=== PATIENT | female | born 1945 | race Two or more races ===

== ENCOUNTER 2018-05-28 07:42 | Emergency (ER) | payer OTHER, MEDICAID ==
[~2018-05-28] VITALS: Ht 160 cm; Wt 78.9 kg
[2018-05-28] MEDS ORDERED: SODIUM CHLORIDE 0.9% 1,000 ML IV ONE (08:17)
[2018-05-28 08:20] LABS: Basophils # (auto) 0.1 uL; Basophils % (auto) 0.6 % (0.0-2.0); Eosinophils # (auto) 0.1 uL; Eosinophils % (auto) 0.5 % (0.0-7.0); Hematocrit 39.8 % (36.0-46.0); Mean Corpuscular Hemoglobin 28.4 pg (28.0-32.0); Mean Corpuscular Hgb Conc. 32.7 g/dL (32.0-36.0); Mean Corpuscular Volume 86.9 fL (80.0-100.0); Monocytes # (auto) 0.8 uL; Monocytes % (auto) 4.6 % (0.0-12.0); Neutrophils # (auto) 13.7 uL; Neutrophils % (auto) 82.3 % (37.0-80.0); Nucleated Red Blood Cells % 0.1 %; Platelet Count (auto) 293 10^3/uL (140-450); Red Blood Cells 4.58 10^6/uL (4.0-5.20); Red Cell Distribution Width 14.6 % (11.8-14.3); White Blood Cell 16.7 10^3/uL (4.4-10.8)
[2018-05-28 08:26] LABS: Urine Bacteria FEW /hpf (None Seen); Urine Blood 1+ /uL (Negative); Urine Specific Gravity 1.016 (1.001-1.035); Urine WBC 12 /hpf (0 - 5)
[2018-05-28] MEDS ORDERED: METOCLOPRAMIDE HCL 5MG/ml INJ 2ml VIAL IV ONE (08:30)
[2018-05-28] MEDS ORDERED: KETOROLAC TROMETH 30 MG/ML 1ML VIAL IV ONE (08:30)
[2018-05-28 08:42] LABS: Alanine Aminotransferase 18 U/L (13-56); Albumin 3.7 g/dL (3.4-5.0); Alkaline Phosphatase 92 U/L (45-117); Amylase 33 U/L (25-115); Anion Gap 10 (5-15); Aspartate Aminotransferase 14 U/L (15-37); BUN/Creatinine Ratio 18.4; Bilirubin, Total 0.5 mg/dL (0.2-1.0); Blood Urea Nitrogen 19 mg/dL (7-18); Calcium 8.9 mg/dL (8.5-10.1); Carbon Dioxide 26 mmol/L (21-32); Chloride 100 mmol/L (98-107); GFR African American 68 mL/min; GFR Non-African American 56 mL/min; Glucose 202 mg/dL (74-106); Lipase 185 U/L (73-393); Magnesium 2.3 mg/dL (1.6-2.6); Sodium 136 mmol/L (136-145); Total Protein 8.8 g/dL (6.4-8.2)
[2018-05-28 10:42] VITALS: BP 148/63
== END 2018-05-28 13:03 | disposition home or self-care (01) ==
LOC: ER 07:42
DX: N39.0 Urinary tract infection, site not specified (principal); K42.9 Umbilical hernia without obstruction or gangrene; K80.20 Calculus of gallbladder without cholecystitis without obstruction; E11.65 Type 2 diabetes mellitus with hyperglycemia; E78.5 Hyperlipidemia, unspecified; I10 Essential (primary) hypertension; Z87.891 Personal history of nicotine dependence
CPT/HCPCS: 36415; 71046; 74176; 80053; 81001; 82150; 82962; 83690; 83735; 84443; 84484; 85025; 93005; 94761; 96374; 96375; 99285; J1885; J2765; J7030

== ENCOUNTER 2024-01-01 23:47 | Inpatient (IN) | payer MEDICARE, MEDICAID ==
[~2024-01-01] VITALS: Ht 157.5 cm; Wt 81.0 kg
[2024-01-02 02:01] LABS: Basophils # (auto) 0 10 ^3/uL (0-0.2); Basophils % (auto) 0.1 % (0.0-2.0); Eosinophils # (auto) 0 10 ^3/uL (0-0.8); Hemoglobin 14.5 g/dL (12.2-16.2); Lymphocytes % (auto) 6.8 % (10.0-50.0)
[2024-01-02 02:04] LABS: Hematocrit 46.5 % (36.0-46.0); Lymphocytes # (auto) 0.9 10 ^3/uL (0.4-5.4); Mean Corpuscular Hemoglobin 25.3 pg (28.0-32.0); Mean Corpuscular Hgb Conc. 31.2 g/dL (32.0-36.0); Mean Corpuscular Volume 81.1 fL (80.0-100.0); Monocytes # (auto) 0.5 10 ^3/uL (0-1.3); Monocytes % (auto) 3.7 % (0.0-12.0); Neutrophils # (auto) 12.4 10 ^3/uL (1.6-8.6); Neutrophils % (auto) 89.4 % (37.0-80.0); Nucleated Red Blood Cells % 0.2 %; Red Blood Cells 5.73 10^6/uL (4.0-5.20); Red Cell Distribution Width 16.8 % (11.8-14.3); White Blood Cell 13.8 10^3/uL (4.4-10.8)
[2024-01-02 02:17] LABS: Alanine Aminotransferase 10 U/L (7-40); Albumin 4.8 g/dL (3.2-4.8); Alkaline Phosphatase 112 U/L (46-116); Anion Gap 17 (5-15); Aspartate Aminotransferase < 8 U/L (13-40); BUN/Creatinine Ratio 10.4 (10.0-20.0); Bilirubin, Total 0.5 mg/dL (0.2-1.0); Blood Urea Nitrogen 59 mg/dL (9-23); Carbon Dioxide 14 mmol/L (20-30); Chloride 96 mmol/L (98-107); Glucose 349 mg/dL (74-106); Lipase 62 U/L (12-53); Sodium 127 mmol/L (136-145); Total Protein 9.2 g/dL (5.7-8.2)
[2024-01-02 02:19] LABS: Lactic Acid w/Reflex 2.6 mmol/L (0.4-2.0); Potassium 6.5 mmol/L (3.5-5.1)
[2024-01-02] MEDS: SODIUM CHLORIDE 0.9% 1,000 ML IV ONE (02:26)
[2024-01-02] MEDS: ONDANSETRON HCL 4 MG/2 ML VIAL IV ONE ×2 (02:26→04:09)
[2024-01-02 03:15] VITALS: PULSE 106; RESP 18; O2SAT 98
[2024-01-02] MEDS: DEXTROSE (25%) 10 ML SYRG IV ONE (03:23)
[2024-01-02] MEDS: ALBUTEROL SULF 2.5 MG/0.5ML(0.5%) NEB SOLN NEB ONE (03:26)
[2024-01-02] MEDS: SODIUM BICARB 8.4% 50Meq/50ml SYR Vial IV ONE (03:32)
[2024-01-02] MEDS: CALCIUM GLUC 1,000mg/50ml-NS 50 ML IV ONE (03:32)
[2024-01-02] MEDS: InsuLIN REG 1unit/0.01ml Soln (100units/ml) IV ONE (03:35)
[2024-01-02] MEDS: MORPHINE SULFATE 4 MG/ML SYR/VIAL IV ONE (04:10)
[2024-01-02] MEDS ORDERED: MORPHINE SULFATE INJ 2 MG/ml SYRG IV PRN (04:30)
[2024-01-02] MEDS ORDERED: DEXTROSE (50%) 50ML SYRG IV PRN (04:30)
[2024-01-02] MEDS ORDERED: NITROGLYCERIN 0.4 MG SL TAB SL PRN (04:30)
[2024-01-02] MEDS: SODIUM CHLORIDE 0.9% 1,000 ML IV SCH ×2 (05:15→09:13)
[2024-01-02] MEDS: cefTRIAXone 1GM/50ML D5W 50 ML IV ONE (05:15)
[2024-01-02 07:45] VITALS: PULSE 104; RESP 20; O2SAT 97
[2024-01-02 08:05] LABS: Chloride 96 mmol/L (98-107)
[2024-01-02 08:06] LABS: Anion Gap 22 (5-15); Calcium 8.3 mg/dL (8.5-10.1); Carbon Dioxide 18 mmol/L (20-30)
[2024-01-02 08:11] LABS: BUN/Creatinine Ratio 14.4 (10.0-20.0); Blood Urea Nitrogen 67 mg/dL (9-23); Glucose 311 mg/dL (74-106)
[2024-01-02 08:12] LABS: Potassium 3.3 mmol/L (3.5-5.1); Sodium 136 mmol/L (136-145)
[2024-01-02] MEDS ORDERED: SODIUM CHLORIDE 0.9% 1,000 ML IV SCH (08:15)
[2024-01-02] MEDS: ACCU-CHEK COMFORT CURVE STRIP VI SCH (08:38)
[2024-01-02] MEDS: InsuLIN REG 1unit/0.01ml Soln (100units/ml) SC SCH (08:40)
[2024-01-02] MEDS: FAMOTIDINE (10MG/ML) 2ML VL IV SCH (10:23)
[2024-01-02] MEDS: HEPARIN SODIUM (PORCINE) 5000 UNITS/ML 1ML VIAL SC SCH (10:25)
[2024-01-02 11:24] LABS: Chloride 96 mmol/L (98-107); Potassium 3.9 mmol/L (3.5-5.1); Sodium 134 mmol/L (136-145)
[2024-01-02 11:25] LABS: Anion Gap 15 (5-15); Carbon Dioxide 23 mmol/L (20-30)
[2024-01-02 11:30] LABS: BUN/Creatinine Ratio 15.1 (10.0-20.0); Blood Urea Nitrogen 67 mg/dL (9-23); Glucose 219 mg/dL (74-106)
[2024-01-02 12:06] LABS: Urine Bacteria FEW /hpf (None Seen); Urine Blood TRACE /uL (Negative); Urine Budding Yeast MANY /hpf (None Seen); Urine Clarity CLOUDY (Clear); Urine Color Yellow (Yellow); Urine Mucus MODERATE (None Seen); Urine Protein, UAD 1+ (Negative); Urine Specific Gravity 1.017 (1.001-1.035); Urine Urobilinogen Normal (Negative); Urine WBC 65 /hpf (0 - 5)
[2024-01-02 20:28] VITALS: PULSE 97; RESP 20; O2SAT 93
[2024-01-02 23:01] VITALS: BP 119/50; PULSE 84; PULSE 91; RESP 20; TEMP 98.2; O2SAT 94; O2SAT 98
[2024-01-02] MEDS ORDERED: ASPI-543 PO (23:22)
[2024-01-02] MEDS ORDERED: CLOB0.059 TOP (23:22)
[2024-01-02] MEDS ORDERED: OMEP1CAP70 PO (23:22)
[2024-01-02] MEDS ORDERED: ATEN100T PO (23:22)
[2024-01-02] MEDS ORDERED: SEMA2INJ3 SC (23:22)
[2024-01-02] MEDS ORDERED: CETI-120 PO (23:22)
[2024-01-02] MEDS ORDERED: CHOL1TAB30 PO (23:22)
[2024-01-03] VITALS (7 sets, daily range): BP systolic 100–117; BP diastolic 32–54; PULSE 77–117; RESP 16–20; TEMP 97.8–98; O2SAT 93–97
[2024-01-03] MEDS: DIGOXIN (250MCG/ML) 2 ML AMPULE IV ONE ×2 (01:38→05:07)
[2024-01-03 06:08] LABS: Eosinophils # (auto) 0 10 ^3/uL (0-0.8); Mean Corpuscular Volume 78.6 fL (80.0-100.0)
[2024-01-03 06:10] LABS: Basophils # (auto) 0 10 ^3/uL (0-0.2); Basophils % (auto) 0.3 % (0.0-2.0); Eosinophils % (auto) 0.5 % (0.0-7.0); Hematocrit 35.2 % (36.0-46.0); Hemoglobin 11.3 g/dL (12.2-16.2); Lymphocytes # (auto) 1.5 10 ^3/uL (0.4-5.4); Lymphocytes % (auto) 15.4 % (10.0-50.0); Mean Corpuscular Hemoglobin 25.1 pg (28.0-32.0); Monocytes # (auto) 1.1 10 ^3/uL (0-1.3); Monocytes % (auto) 11.8 % (0.0-12.0); Neutrophils # (auto) 6.8 10 ^3/uL (1.6-8.6); Nucleated Red Blood Cells % 0.2 %; Red Blood Cells 4.48 10^6/uL (4.0-5.20); Red Cell Distribution Width 16.4 % (11.8-14.3); White Blood Cell 9.5 10^3/uL (4.4-10.8)
[2024-01-03 06:28] LABS: Albumin 3.3 g/dL (3.2-4.8); Anion Gap 11 (5-15); Bilirubin, Total 0.5 mg/dL (0.2-1.0); Calcium 7.7 mg/dL (8.5-10.1); Carbon Dioxide 22 mmol/L (20-30); Chloride 104 mmol/L (98-107); Glucose 130 mg/dL (74-106); Potassium 3.9 mmol/L (3.5-5.1); Sodium 137 mmol/L (136-145)
[2024-01-03 06:43] LABS: Alanine Aminotransferase 10 U/L (7-40); Alkaline Phosphatase 74 U/L (46-116); Aspartate Aminotransferase 20 U/L (13-40); BUN/Creatinine Ratio 21.3 (10.0-20.0)
[2024-01-03 06:46] LABS: Blood Urea Nitrogen 56 mg/dL (9-23)
[2024-01-03 08:58] LABS: Hepatitis B Surface Antigen Negative (Negative)
[2024-01-03] MEDS: cefTRIAXone 1GM/50ML D5W 50 ML IV SCH (09:11)
[2024-01-03 09:20] LABS: Hepatitis C Antibody Negative (Negative)
[2024-01-03] MEDS: DOCUSATE SOD 100 MG CAP PO PRN (12:07)
[2024-01-03] MEDS: HYDROcodone-ACET 5/325MG TAB PO PRN (12:15)
[2024-01-03] MEDS ORDERED: PANTOPRAZOLE 40 MG TAB PO ONE (17:15)
[2024-01-03] MEDS: PANTOPRAZOLE 40 MG/10 ML VIAL INJ IV ONE (20:06)
[2024-01-03] MEDS: ONDANSETRON HCL 4 MG/2 ML VIAL IV PRN (20:30)
[2024-01-04] VITALS (7 sets, daily range): BP systolic 115–146; BP diastolic 39–68; PULSE 67–104; RESP 16–20; TEMP 97.3–98.7; O2SAT 93–96
[2024-01-04] MEDS: PANTOPRAZOLE 40 MG/10 ML VIAL INJ IV SCH (08:45)
[2024-01-04] MEDS ORDERED: INSU1INJ19 SC (09:44)
[2024-01-04] MEDS ORDERED: LISI40TA16 PO (09:44)
[2024-01-04] MEDS ORDERED: PANTOPRAZOLE 40 MG TAB PO SCH (10:00)
[2024-01-04 17:08] LABS: Sodium Urine < 10 mmol/L (40-220)
[2024-01-04 17:12] LABS: Protein, Urine 28.7 mg/dL (0.0-11.9)
[2024-01-04 17:15] LABS: Creatinine, Urine 81.94 mg/dL (30.0-125.0); Urine Protein/Creatinine Ratio 0.35
[2024-01-05] VITALS (8 sets, daily range): BP systolic 120–147; BP diastolic 53–98; PULSE 67–162; RESP 16–18; TEMP 98–98.6; O2SAT 94–98
[2024-01-05 06:09] LABS: Alanine Aminotransferase 12 U/L (7-40); Albumin 3.1 g/dL (3.2-4.8); Alkaline Phosphatase 62 U/L (46-116); Anion Gap 7 (5-15); Aspartate Aminotransferase 14 U/L (13-40); BUN/Creatinine Ratio 23.8 (10.0-20.0); Bilirubin, Total 0.4 mg/dL (0.2-1.0); Blood Urea Nitrogen 24 mg/dL (9-23); Calcium 7.8 mg/dL (8.7-10.4); Carbon Dioxide 21 mmol/L (20-30); Chloride 109 mmol/L (98-107); Glucose 97 mg/dL (74-106); Potassium 4.3 mmol/L (3.5-5.1); Sodium 137 mmol/L (136-145); Total Protein 5.7 g/dL (5.7-8.2)
[2024-01-05] MEDS ORDERED: CETI10CA PO (08:54)
[2024-01-05] MEDS: ENOXAPARIN SOD 80 MG/0.8ML SYRINGE SC SCH (08:57)
[2024-01-05] MEDS: METOPROLOL TARTRATE 25 MG TAB PO ONE (08:58)
[2024-01-05] MEDS: AMIODARONE BOLUS KIT 100 ML IV ONE (11:19)
[2024-01-05] MEDS: AMIODARONE 450mg/250ml AE 250 ML IV SCH ×2 (11:37→14:45)
[2024-01-05] MEDS: METOPROLOL TARTRATE 25 MG TAB PO SCH (21:32)
[2024-01-05] MEDS: ACETAMINOPHEN 325 MG TAB PO PRN (21:43)
[2024-01-06] VITALS (7 sets, daily range): BP systolic 128–150; BP diastolic 49–68; PULSE 60–128; RESP 16–20; TEMP 97.4–98.3; O2SAT 93–99
[2024-01-06 06:58] LABS: Alanine Aminotransferase 12 U/L (7-40); Alkaline Phosphatase 58 U/L (46-116); Anion Gap 8 (5-15); Aspartate Aminotransferase 15 U/L (13-40); BUN/Creatinine Ratio 15.9 (10.0-20.0); Blood Urea Nitrogen 17 mg/dL (9-23); Calcium 7.8 mg/dL (8.7-10.4); Carbon Dioxide 21 mmol/L (20-30); Chloride 109 mmol/L (98-107); Glucose 80 mg/dL (74-106); Potassium 4.5 mmol/L (3.5-5.1); Sodium 138 mmol/L (136-145)
[2024-01-06 06:59] LABS: Bilirubin, Total 0.4 mg/dL (0.2-1.0); Total Protein 5.6 g/dL (5.7-8.2)
[2024-01-06] MEDS: ONDANSETRON HCL 4 MG/2 ML VIAL IV ONE (09:20)
[2024-01-06 10:33] LABS: Basophils # (auto) 0 10 ^3/uL (0-0.2); Hemoglobin 10.7 g/dL (12.2-16.2); Lymphocytes # (auto) 1.8 10 ^3/uL (0.4-5.4); Monocytes # (auto) 0.6 10 ^3/uL (0-1.3); Neutrophils # (auto) 4.3 10 ^3/uL (1.6-8.6); Neutrophils % (auto) 62.6 % (37.0-80.0); White Blood Cell 6.9 10^3/uL (4.4-10.8)
[2024-01-06 10:35] LABS: Basophils % (auto) 0.5 % (0.0-2.0); Eosinophils # (auto) 0.1 10 ^3/uL (0-0.8); Eosinophils % (auto) 1.9 % (0.0-7.0); Hematocrit 34.5 % (36.0-46.0); Lymphocytes % (auto) 26.1 % (10.0-50.0); Mean Corpuscular Hgb Conc. 30.9 g/dL (32.0-36.0); Mean Corpuscular Volume 81.1 fL (80.0-100.0); Monocytes % (auto) 8.9 % (0.0-12.0); Nucleated Red Blood Cells % 0.1 %; Red Blood Cells 4.25 10^6/uL (4.0-5.20); Red Cell Distribution Width 16.9 % (11.8-14.3)
[2024-01-06] MEDS: metroNIDAZOLE 500MG/100ML 100 ML IV ONE (11:24)
[2024-01-06 12:37] LABS: INR 1.1 (0.9-1.15); Partial Thromboplastin Time 32.9 SEC (24.5-34.5); Prothrombin Time 11.5 sec (9.3-11.8)
[2024-01-06] MEDS: PROMETHAZINE HCL 25 MG/ML 1ML IV PRN (13:40)
[2024-01-06] MEDS: GASTROGRAFIN 120 ML SOL ONE ×2 (13:58→14:50)
[2024-01-07] VITALS (7 sets, daily range): BP systolic 99–140; BP diastolic 64–98; PULSE 66–126; RESP 16–18; TEMP 97.8–98.2; O2SAT 96–97
[2024-01-07] MEDS: GASTROGRAFIN 120 ML SOL ONE (11:12)
[2024-01-07] MEDS: PROMETHAZINE HCL 25 MG/ML 1ML IV PRN (15:39)
[2024-01-08] VITALS (8 sets, daily range): BP systolic 113–167; BP diastolic 68–71; PULSE 67–125; RESP 15–18; TEMP 97.6–98.3; O2SAT 96–97
[2024-01-09] VITALS (8 sets, daily range): BP systolic 140–159; BP diastolic 37–67; PULSE 74–91; RESP 16–20; TEMP 97.6–98.4; O2SAT 96–99
[2024-01-09] MEDS ORDERED: hydrALAZINE HCL 20 MG/ML VL IV PRN (01:15)
[2024-01-09] MEDS: hydrALAZINE HCL 20 MG/ML VL IV PRN (02:55)
[2024-01-09] MEDS: InsuLIN REG 1unit/0.01ml Soln (100units/ml) SC SCH (11:30)
[2024-01-09] MEDS: ACCU-CHEK COMFORT CURVE STRIP VI SCH (12:32)
[2024-01-10] VITALS (10 sets, daily range): BP systolic 119–144; BP diastolic 46–61; PULSE 73–79; RESP 11–20; TEMP 97.4–98.2; O2SAT 95–100
[2024-01-10 06:27] LABS: Eosinophils # (auto) 0.2 10 ^3/uL (0-0.8); Hemoglobin 10.7 g/dL (12.2-16.2); Lymphocytes # (auto) 1.9 10 ^3/uL (0.4-5.4); Monocytes # (auto) 0.8 10 ^3/uL (0-1.3); Red Cell Distribution Width 17.4 % (11.8-14.3)
[2024-01-10 06:30] LABS: Basophils # (auto) 0 10 ^3/uL (0-0.2); Basophils % (auto) 0.3 % (0.0-2.0); Eosinophils % (auto) 1.8 % (0.0-7.0); Hematocrit 33.9 % (36.0-46.0); Lymphocytes % (auto) 17.4 % (10.0-50.0); Mean Corpuscular Hemoglobin 25.7 pg (28.0-32.0); Mean Corpuscular Hgb Conc. 31.6 g/dL (32.0-36.0); Mean Corpuscular Volume 81.6 fL (80.0-100.0); Monocytes % (auto) 7.4 % (0.0-12.0); Neutrophils % (auto) 73.1 % (37.0-80.0); Red Blood Cells 4.15 10^6/uL (4.0-5.20)
[2024-01-10 06:41] LABS: Alanine Aminotransferase 38 U/L (7-40); Albumin 3.3 g/dL (3.2-4.8); Alkaline Phosphatase 66 U/L (46-116); Anion Gap 8 (5-15); Aspartate Aminotransferase 31 U/L (13-40); Blood Urea Nitrogen 12 mg/dL (9-23); Calcium 8.1 mg/dL (8.7-10.4); Carbon Dioxide 21 mmol/L (20-30); Chloride 107 mmol/L (98-107); Glucose 104 mg/dL (74-106); Potassium 4.3 mmol/L (3.5-5.1); Sodium 136 mmol/L (136-145)
[2024-01-10 06:42] LABS: Bilirubin, Total 0.4 mg/dL (0.2-1.0); Total Protein 5.9 g/dL (5.7-8.2)
[2024-01-10] MEDS ORDERED: MIDAZOLAM HCL 2MG/2ML 2ml VIAL (1mg/ml) ONE (10:48)
[2024-01-10] MEDS ORDERED: HYDROmorphone HCL 2 MG/ML VL/or syr ONE (10:48)
[2024-01-10] MEDS ORDERED: fentaNYL CITRATE 100 MCG/2 ML VL ONE (10:48)
[2024-01-10] MEDS ORDERED: ROCURONIUM 10MG/ML 10ML VIAL IV ONE (10:49)
[2024-01-10] MEDS ORDERED: PROPOFOL 10 MG/ML 20 ML IV ONE (10:49)
[2024-01-10] MEDS ORDERED: ONDANSETRON HCL 4 MG/2 ML VIAL ONE (10:49)
[2024-01-10] MEDS ORDERED: DexAMETHasone SOD PHOS 10MG/1ML VIAL INJ ONE (10:49)
[2024-01-10] MEDS ORDERED: GLYCOPYRROLATE 0.2 MG/ML 1ML VIAL ONE (10:49)
[2024-01-10] MEDS ORDERED: KETAMINE 50mg/ML 1ml syringe ONE (10:49)
[2024-01-10] MEDS ORDERED: LIDOCAINE 2% (LOCAL ANESTH.) PF 5ml SDV ONE (10:49)
[2024-01-10] MEDS ORDERED: ePHEDrine SULFATE 50 MG/ML AMP ONE (10:49)
[2024-01-10] MEDS ORDERED: SUGAMMADEX 200mg/2ml Vial (100MG/ML) IV ONE (13:03)
[2024-01-10] MEDS ORDERED: NALOXONE HCL 0.4 MG/ML VIAL ONE (13:20)
[2024-01-10] MEDS ORDERED: HYDROmorphone HCL 2 MG/ML VL/or syr IV PRN (13:45)
[2024-01-10] MEDS ORDERED: ONDANSETRON HCL 4 MG/2 ML VIAL IV PRN (13:45)
[2024-01-10] MEDS: MORPHINE SULFATE INJ 2 MG/ml SYRG IV PRN (23:39)
[2024-01-10] MEDS: ONDANSETRON HCL 4 MG/2 ML VIAL IV PRN (23:41)
[2024-01-11] VITALS (46 sets, daily range): BP systolic 93–131; BP diastolic 26–58; PULSE 73–85; RESP 10–19; TEMP 97.9–98.2; O2SAT 92–100
[2024-01-11 05:20] LABS: Hemoglobin 9.8 g/dL (12.2-16.2)
[2024-01-11 05:22] LABS: Hematocrit 31.6 % (36.0-46.0); Mean Corpuscular Hemoglobin 25.5 pg (28.0-32.0); Mean Corpuscular Hgb Conc. 31.2 g/dL (32.0-36.0); Mean Corpuscular Volume 81.9 fL (80.0-100.0); Red Blood Cells 3.86 10^6/uL (4.0-5.20); Red Cell Distribution Width 17.5 % (11.8-14.3); White Blood Cell 25.1 10^3/uL (4.4-10.8)
[2024-01-11 05:34] LABS: Basophils % (manual) 0 (0.0-2.0); Blast Cells 0; Eosinophils % (manual) 0 (0-7); Metamyelocytes % 0; Monocytes % (manual) 0 (0-12); Myelocytes % 0; Promyelocytes % 0; Reactive Lymphocytes 0
[2024-01-11 05:40] LABS: Alanine Aminotransferase 33 U/L (7-40); Albumin 2.8 g/dL (3.2-4.8); Alkaline Phosphatase 52 U/L (46-116); Anion Gap 9 (5-15); Aspartate Aminotransferase 24 U/L (13-40); Blood Urea Nitrogen 15 mg/dL (9-23); Calcium 7.6 mg/dL (8.5-10.1); Carbon Dioxide 20 mmol/L (20-30); Chloride 108 mmol/L (98-107); Glucose 176 mg/dL (74-106); Potassium 5.1 mmol/L (3.5-5.1); Sodium 137 mmol/L (136-145)
[2024-01-11 05:41] LABS: Bilirubin, Total 0.4 mg/dL (0.2-1.0); Total Protein 4.7 g/dL (5.7-8.2)
[2024-01-11] MEDS ORDERED: fentaNYL CITRATE 100 MCG/2 ML VL ONE (07:04)
[2024-01-11 07:05] LABS: Band Neutrophils % (manual) 8; Lymphocytes % (manual) 1 (10.0-50.0)
[2024-01-11] MEDS ORDERED: MIDAZOLAM HCL 2MG/2ML 2ml VIAL (1mg/ml) ONE (07:05)
[2024-01-11] MEDS ORDERED: LIDOCAINE 1% INJ PF 5ML AMP ONE (07:05)
[2024-01-11] MEDS ORDERED: ONDANSETRON HCL 4 MG/2 ML VIAL ONE (07:05)
[2024-01-11] MEDS ORDERED: SODIUM CHLORIDE LOCK 20 ML ONE (07:05)
[2024-01-11] MEDS ORDERED: MEPERIDINE HCL (50 MG/ML) 1 ML VIAL ONE (07:05)
[2024-01-11] MEDS ORDERED: LIDOCAINE HCL 2% TOP JELLY 5ML TOP ONE (07:05)
[2024-01-11] MEDS ORDERED: DexAMETHasone SOD PHOS 10MG/1ML VIAL INJ ONE (07:05)
[2024-01-11] MEDS ORDERED: PROPOFOL 10 MG/ML 20 ML IV ONE (07:05)
[2024-01-11 07:08] LABS: Anisocytosis Slight; Ovalocytes FEW; Platelet Estimate Adequate
[2024-01-11] MEDS ORDERED: KETAMINE 50mg/ML 1ml syringe ONE (07:13)
[2024-01-11] MEDS ORDERED: MORPHINE SULFATE INJ 2 MG/ml SYRG IV PRN (07:30)
[2024-01-11] MEDS ORDERED: HYDROmorphone HCL 2 MG/ML VL/or syr IV PRN ×2 (07:30)
[2024-01-11] MEDS: SUCCINYLCHOLINE CHLORIDE 20 MG/ML 10ML VIAL IV ONE (11:09)
[2024-01-11] MEDS: ROCURONIUM 10MG/ML 10ML VIAL IV ONE (11:09)
[2024-01-11] MEDS: ceFAZolin 1GM/50ML 50 ML IV ONE (11:10)
[2024-01-11] MEDS: PIPERACILLIN-TAZOB 3.375GM 100 ML IV SCH (11:36)
[2024-01-11] MEDS ORDERED: KETOROLAC TROMETH 30 MG/ML 1ML VIAL IV PRN (15:30)
[2024-01-11] MEDS: AMIODARONE 450mg/250ml AE 250 ML IV SCH (16:00)
[2024-01-11] MEDS: ACETAMINOPHEN IV 1000 MG/100ML (10MG/ML) IV PRN (18:08)
[2024-01-12] VITALS (12 sets, daily range): BP systolic 91–154; BP diastolic 35–60; PULSE 81–101; RESP 14–28; TEMP 97.9–100.2; O2SAT 91–96
[2024-01-12 06:34] LABS: Basophils # (auto) 0 10 ^3/uL (0-0.2); Hemoglobin 9.4 g/dL (12.2-16.2)
[2024-01-12 06:38] LABS: Basophils % (auto) 0.1 % (0.0-2.0); Eosinophils # (auto) 0.1 10 ^3/uL (0-0.8); Eosinophils % (auto) 0.8 % (0.0-7.0); Hematocrit 30.3 % (36.0-46.0); Lymphocytes # (auto) 0.6 10 ^3/uL (0.4-5.4); Lymphocytes % (auto) 3.4 % (10.0-50.0); Mean Corpuscular Hemoglobin 25.4 pg (28.0-32.0); Monocytes # (auto) 0.8 10 ^3/uL (0-1.3); Monocytes % (auto) 4.6 % (0.0-12.0); Neutrophils # (auto) 16.8 10 ^3/uL (1.6-8.6); Neutrophils % (auto) 91.1 % (37.0-80.0); Red Blood Cells 3.69 10^6/uL (4.0-5.20); Red Cell Distribution Width 17.9 % (11.8-14.3); White Blood Cell 18.4 10^3/uL (4.4-10.8)
[2024-01-12 06:50] LABS: Alanine Aminotransferase 18 U/L (7-40); Albumin 2.6 g/dL (3.2-4.8); Alkaline Phosphatase 54 U/L (46-116); Anion Gap 7 (5-15); Aspartate Aminotransferase 11 U/L (13-40); Bilirubin, Total 0.4 mg/dL (0.2-1.0); Blood Urea Nitrogen 15 mg/dL (9-23); Calcium 7.2 mg/dL (8.7-10.4); Carbon Dioxide 21 mmol/L (20-30); Chloride 110 mmol/L (98-107); Glucose 124 mg/dL (74-106); Potassium 4.1 mmol/L (3.5-5.1); Sodium 138 mmol/L (136-145)
[2024-01-12 06:51] LABS: Total Protein 4.7 g/dL (5.7-8.2)
[2024-01-12 14:29] LABS: INR 1.09 (0.9-1.15); Partial Thromboplastin Time 31.8 SEC (24.5-34.5); Prothrombin Time 11.4 sec (9.3-11.8)
[2024-01-12] MEDS: LIDOCAINE 1% (LOCAL ANESTH.) PF 5ml SDV ID ONE (18:30)
[2024-01-12] MEDS: SODIUM CHLOR 0.9% PF (SALINE LOCK) 10ML VIAL/SYR IV SCH (22:00)
[2024-01-13] VITALS (9 sets, daily range): BP systolic 127–168; BP diastolic 35–67; PULSE 78–129; RESP 17–25; TEMP 96.1–98.9; O2SAT 91–100
[2024-01-13 05:14] LABS: Basophils # (auto) 0 10 ^3/uL (0-0.2); Basophils % (auto) 0.2 % (0.0-2.0); Eosinophils # (auto) 0.1 10 ^3/uL (0-0.8); Eosinophils % (auto) 0.9 % (0.0-7.0); Hematocrit 27.3 % (36.0-46.0); Hemoglobin 8.6 g/dL (12.2-16.2); Lymphocytes # (auto) 0.9 10 ^3/uL (0.4-5.4); Mean Corpuscular Hemoglobin 25.8 pg (28.0-32.0); Mean Corpuscular Hgb Conc. 31.4 g/dL (32.0-36.0); Mean Corpuscular Volume 82.2 fL (80.0-100.0); Monocytes % (auto) 6.7 % (0.0-12.0); Neutrophils # (auto) 13.1 10 ^3/uL (1.6-8.6); Neutrophils % (auto) 86.2 % (37.0-80.0); Red Blood Cells 3.32 10^6/uL (4.0-5.20); Red Cell Distribution Width 18.2 % (11.8-14.3); White Blood Cell 15.1 10^3/uL (4.4-10.8)
[2024-01-13 05:20] LABS: Alanine Aminotransferase 15 U/L (7-40); Albumin 2.4 g/dL (3.2-4.8); Alkaline Phosphatase 55 U/L (46-116); Anion Gap 7 (5-15); Aspartate Aminotransferase 14 U/L (13-40); BUN/Creatinine Ratio 10.8 (10.0-20.0); Bilirubin, Total 0.4 mg/dL (0.2-1.0); Blood Urea Nitrogen 9 mg/dL (9-23); Calcium 7.3 mg/dL (8.5-10.1); Carbon Dioxide 21 mmol/L (20-30); Chloride 113 mmol/L (98-107); Glucose 123 mg/dL (74-106); Potassium 3.8 mmol/L (3.5-5.1); Sodium 141 mmol/L (136-145); Total Protein 4.3 g/dL (5.7-8.2)
[2024-01-13] MEDS: FUROSEMIDE 20 MG/2 ML VIAL IV ONE (13:18)
[2024-01-13] MEDS ORDERED: TPN PER PHARMACY 0 ML IV SCH (17:15)
[2024-01-13 18:32] LABS: Magnesium 1.5 mg/dL (1.6-2.6)
[2024-01-13 18:34] LABS: Phosphorus 1.9 mg/dL (2.4-5.1)
[2024-01-13] MEDS: AMINO ACID INFUSION IN D10W 1,000 ML IV SCH (20:17)
[2024-01-13] MEDS: POTASSIUM PHOSPHATE 22 MEQ in SODIUM CHL 0.9% 100 ML IV ONE (22:14)
[2024-01-13] MEDS: MAGNESIUM SULFATE 1GM/100ML 100 ML IV SCH (22:14)
[2024-01-14] VITALS (14 sets, daily range): BP systolic 129–186; BP diastolic 36–61; PULSE 71–128; RESP 13–22; TEMP 96.9–98.5; O2SAT 97–100
[2024-01-14 05:38] LABS: Basophils # (auto) 0.1 10 ^3/uL (0-0.2); Eosinophils # (auto) 0.1 10 ^3/uL (0-0.8); Lymphocytes # (auto) 0.6 10 ^3/uL (0.4-5.4); Monocytes # (auto) 0.9 10 ^3/uL (0-1.3)
[2024-01-14 05:42] LABS: Basophils % (auto) 0.5 % (0.0-2.0); Eosinophils % (auto) 1.1 % (0.0-7.0); Hemoglobin 8.6 g/dL (12.2-16.2); Mean Corpuscular Hemoglobin 26.3 pg (28.0-32.0); Mean Corpuscular Volume 82.2 fL (80.0-100.0); Monocytes % (auto) 6.9 % (0.0-12.0); Neutrophils # (auto) 11.1 10 ^3/uL (1.6-8.6); Neutrophils % (auto) 86.5 % (37.0-80.0); Nucleated Red Blood Cells % 0.1 %; Red Blood Cells 3.28 10^6/uL (4.0-5.20); Red Cell Distribution Width 18.1 % (11.8-14.3); White Blood Cell 12.8 10^3/uL (4.4-10.8)
[2024-01-14 06:02] LABS: Alanine Aminotransferase 9 U/L (7-40); Albumin 2.4 g/dL (3.2-4.8); Alkaline Phosphatase 58 U/L (46-116); Anion Gap 8 (5-15); BUN/Creatinine Ratio 11.7 (10.0-20.0); Blood Urea Nitrogen 9 mg/dL (9-23); Calcium 7.1 mg/dL (8.7-10.4); Carbon Dioxide 22 mmol/L (20-30); Chloride 109 mmol/L (98-107); Glucose 245 mg/dL (74-106); Magnesium 1.8 mg/dL (1.6-2.6); Potassium 3.4 mmol/L (3.5-5.1); Sodium 139 mmol/L (136-145)
[2024-01-14 06:03] LABS: Aspartate Aminotransferase < 8 U/L (13-40); Bilirubin, Total 0.4 mg/dL (0.2-1.0); Total Protein 4.6 g/dL (5.7-8.2)
[2024-01-14 06:35] LABS: Triglycerides 124 mg/dL (< 150)
[2024-01-14] MEDS: CALCIUM GLUC 1,000mg/50ml-NS 50 ML IV ONE (10:18)
[2024-01-14] MEDS: FLUCONAZOLE 200MG/100ML 100 ML IV SCH (10:18)
[2024-01-14] MEDS: FUROSEMIDE 20 MG/2 ML VIAL IV SCH (10:19)
[2024-01-14] MEDS: ACCU-CHEK COMFORT CURVE STRIP VI SCH (11:48)
[2024-01-14] MEDS ORDERED: DEXTROSE (50%) 50ML SYRG IV SCH (12:00)
[2024-01-14] MEDS: InsuLIN REG 1unit/0.01ml Soln (100units/ml) SC SCH (12:01)
[2024-01-14] MEDS: POTASSIUM PHOSPHATE 44 MEQ in D5W 5% 250 ML IV ONE (12:30)
[2024-01-14] MEDS: TPN PER PHARMACY IV NR (20:46)
[2024-01-15] VITALS (17 sets, daily range): BP systolic 147–187; BP diastolic 38–65; PULSE 68–82; RESP 12–23; TEMP 97.4–98.7; O2SAT 95–100
[2024-01-15 06:10] LABS: Basophils % (auto) 0.5 % (0.0-2.0); Hemoglobin 8.4 g/dL (12.2-16.2); Lymphocytes # (auto) 0.7 10 ^3/uL (0.4-5.4); Neutrophils # (auto) 8.8 10 ^3/uL (1.6-8.6); White Blood Cell 10.7 10^3/uL (4.4-10.8)
[2024-01-15 06:13] LABS: Basophils # (auto) 0 10 ^3/uL (0-0.2); Eosinophils # (auto) 0.2 10 ^3/uL (0-0.8); Eosinophils % (auto) 1.9 % (0.0-7.0); Hematocrit 25.9 % (36.0-46.0); Lymphocytes % (auto) 6.7 % (10.0-50.0); Mean Corpuscular Hemoglobin 26.3 pg (28.0-32.0); Mean Corpuscular Hgb Conc. 32.3 g/dL (32.0-36.0); Mean Corpuscular Volume 81.2 fL (80.0-100.0); Monocytes # (auto) 0.8 10 ^3/uL (0-1.3); Neutrophils % (auto) 82.9 % (37.0-80.0); Nucleated Red Blood Cells % 0.1 %; Red Blood Cells 3.19 10^6/uL (4.0-5.20); Red Cell Distribution Width 17.7 % (11.8-14.3)
[2024-01-15 06:19] LABS: Albumin 2.3 g/dL (3.2-4.8); Alkaline Phosphatase 55 U/L (46-116); Anion Gap 7 (5-15); Aspartate Aminotransferase < 8 U/L (13-40); BUN/Creatinine Ratio 13.6 (10.0-20.0); Blood Urea Nitrogen 9 mg/dL (9-23); Calcium 7.2 mg/dL (8.7-10.4); Carbon Dioxide 24 mmol/L (20-30); Chloride 106 mmol/L (98-107); Glucose 229 mg/dL (74-106); Magnesium 1.6 mg/dL (1.6-2.6); Phosphorus 2.5 mg/dL (2.4-5.1); Potassium 3.6 mmol/L (3.5-5.1); Sodium 137 mmol/L (136-145); Total Protein 4.5 g/dL (5.7-8.2)
[2024-01-15 06:20] LABS: Alanine Aminotransferase < 9 U/L (7-40)
[2024-01-15 06:21] LABS: Bilirubin, Total 0.4 mg/dL (0.2-1.0)
[2024-01-15] MEDS: METOPROLOL TARTRATE 25 MG TAB PO SCH (10:45)
[2024-01-15] MEDS ORDERED: SODIUM CHLORIDE 0.9% 1,000 ML IV SCH ×2 (11:15)
[2024-01-15] MEDS: MAGNESIUM SULFATE 1GM/100ML 100 ML IV SCH (11:15)
[2024-01-15] MEDS: ALBUMIN 25% 50 ML IV ONE (11:30)
[2024-01-15] MEDS: hydrALAZINE HCL 20 MG/ML VL IV SCH (12:15)
[2024-01-15] MEDS: POTASSIUM PHOSPHATE 22 MEQ in SODIUM CHL 0.9% 100 ML IV ONE (13:00)
[2024-01-15] MEDS: SODIUM CHLORIDE 0.9% 1,000 ML IV SCH (20:00)
[2024-01-15] MEDS: TPN PER PHARMACY IV NR (21:35)
[2024-01-16] VITALS (32 sets, daily range): BP systolic 122–185; BP diastolic 34–69; PULSE 68–84; RESP 11–20; TEMP 98–98.4; O2SAT 92–100
[2024-01-16 08:54] LABS: Alanine Aminotransferase 21 U/L (7-40); Albumin 2.6 g/dL (3.2-4.8); Alkaline Phosphatase 82 U/L (46-116); Anion Gap 7 (5-15); Aspartate Aminotransferase 36 U/L (13-40); BUN/Creatinine Ratio 17.7 (10.0-20.0); Bilirubin, Total 0.6 mg/dL (0.2-1.0); Blood Urea Nitrogen 11 mg/dL (9-23); Calcium 7.3 mg/dL (8.7-10.4); Carbon Dioxide 29 mmol/L (20-30); Chloride 103 mmol/L (98-107); Glucose 158 mg/dL (74-106); Phosphorus 2.5 mg/dL (2.4-5.1); Potassium 3.5 mmol/L (3.5-5.1); Sodium 139 mmol/L (136-145)
[2024-01-16] MEDS: CALCIUM GLUC 1,000mg/50ml-NS 50 ML IV ONE (11:20)
[2024-01-16] MEDS: POTASSIUM PHOSPHATE 22 MEQ in SODIUM CHL 0.9% 100 ML IV ONE (12:16)
[2024-01-16] MEDS: TPN PER PHARMACY IV NR (19:37)
[2024-01-17] VITALS (27 sets, daily range): BP systolic 115–174; BP diastolic 42–62; PULSE 69–82; RESP 13–20; TEMP 98.1–98.6; O2SAT 90–100
[2024-01-17 06:18] LABS: Alanine Aminotransferase 41 U/L (7-40); Albumin 2.5 g/dL (3.2-4.8); Alkaline Phosphatase 93 U/L (46-116); Anion Gap 6 (5-15); Aspartate Aminotransferase 54 U/L (13-40); BUN/Creatinine Ratio 22.9 (10.0-20.0); Blood Urea Nitrogen 16 mg/dL (9-23); Calcium 7.5 mg/dL (8.7-10.4); Carbon Dioxide 30 mmol/L (20-30); Chloride 102 mmol/L (98-107); Glucose 158 mg/dL (74-106); Potassium 3.7 mmol/L (3.5-5.1); Sodium 138 mmol/L (136-145)
[2024-01-17 06:19] LABS: Bilirubin, Total 0.5 mg/dL (0.2-1.0); Phosphorus 3.3 mg/dL (2.4-5.1)
[2024-01-17] MEDS: TPN PER PHARMACY IV NR (19:54)
[2024-01-18] VITALS (24 sets, daily range): BP systolic 134–185; BP diastolic 45–87; PULSE 69–82; RESP 11–22; TEMP 98–98.4; O2SAT 93–99
[2024-01-18 05:27] LABS: Alanine Aminotransferase 38 U/L (7-40); Albumin 2.5 g/dL (3.2-4.8); Alkaline Phosphatase 111 U/L (46-116); Anion Gap 4 (5-15); Aspartate Aminotransferase 40 U/L (13-40); BUN/Creatinine Ratio 26.8 (10.0-20.0); Bilirubin, Total 0.4 mg/dL (0.2-1.0); Blood Urea Nitrogen 19 mg/dL (9-23); Calcium 7.3 mg/dL (8.7-10.4); Carbon Dioxide 31 mmol/L (20-30); Chloride 103 mmol/L (98-107); Glucose 175 mg/dL (74-106); Magnesium 2.1 mg/dL (1.6-2.6); Phosphorus 2.9 mg/dL (2.4-5.1); Sodium 138 mmol/L (136-145)
[2024-01-18] MEDS ORDERED: GASTROGRAFIN 120 ML SOL ONE (09:43)
[2024-01-18] MEDS: AMPICILLIN & SULBACTAM 3 GM in NS 0.9% 100 ML IV SCH (13:08)
[2024-01-18] MEDS: TPN PER PHARMACY IV NR (21:48)
[2024-01-19] VITALS (11 sets, daily range): BP systolic 138–175; BP diastolic 39–62; PULSE 55–77; RESP 8–18; TEMP 98.2–98.4; O2SAT 93–100
[2024-01-19 06:13] LABS: Alanine Aminotransferase 44 U/L (7-40); Alkaline Phosphatase 120 U/L (46-116); Anion Gap 4 (5-15); Aspartate Aminotransferase 42 U/L (13-40); BUN/Creatinine Ratio 28.4 (10.0-20.0); Blood Urea Nitrogen 19 mg/dL (9-23); Calcium 7.5 mg/dL (8.7-10.4); Carbon Dioxide 32 mmol/L (20-30); Chloride 103 mmol/L (98-107); Glucose 119 mg/dL (74-106); Magnesium 2.3 mg/dL (1.6-2.6); Potassium 4.1 mmol/L (3.5-5.1); Sodium 139 mmol/L (136-145)
[2024-01-19 06:14] LABS: Albumin 2.7 g/dL (3.2-4.8); Bilirubin, Total 0.3 mg/dL (0.2-1.0); Phosphorus 2.8 mg/dL (2.4-5.1); Total Protein 5.3 g/dL (5.7-8.2)
[2024-01-19 06:40] LABS: Triglycerides 99 mg/dL (< 150)
[2024-01-19] MEDS: ACETAMINOPHEN 325 MG TAB PO PRN (11:52)
[2024-01-19] MEDS: TPN PER PHARMACY IV NR (20:30)
[2024-01-19] MEDS: AMIODARONE HCL 200 MG TAB PO SCH (21:33)
[2024-01-20] VITALS (10 sets, daily range): BP systolic 115–186; BP diastolic 35–94; PULSE 63–77; RESP 16–20; TEMP 97.8–98.9; O2SAT 94–98
[2024-01-20 06:18] LABS: Alanine Aminotransferase 33 U/L (7-40); Albumin 2.5 g/dL (3.2-4.8); Alkaline Phosphatase 106 U/L (46-116); Anion Gap 5 (5-15); Aspartate Aminotransferase 23 U/L (13-40); Blood Urea Nitrogen 22 mg/dL (9-23); Calcium 7.4 mg/dL (8.7-10.4); Carbon Dioxide 29 mmol/L (20-30); Chloride 105 mmol/L (98-107); Glucose 105 mg/dL (74-106); Magnesium 2.4 mg/dL (1.6-2.6); Potassium 4.5 mmol/L (3.5-5.1); Sodium 139 mmol/L (136-145)
[2024-01-20 06:19] LABS: Bilirubin, Total 0.2 mg/dL (0.2-1.0); Phosphorus 3.5 mg/dL (2.4-5.1)
[2024-01-20] MEDS ORDERED: ACETAMINOPHEN IV 1000 MG/100ML (10MG/ML) IV PRN (15:45)
[2024-01-20] MEDS: KETOROLAC TROMETH 30 MG/ML 1ML VIAL IV PRN (15:53)
[2024-01-20] MEDS: TPN PER PHARMACY IV NR (21:57)
[2024-01-21] VITALS (7 sets, daily range): BP systolic 140–170; BP diastolic 45–63; PULSE 64–77; RESP 15–20; TEMP 97.6–98.4; O2SAT 95–98
[2024-01-21 07:23] LABS: Potassium 4.8 mmol/L (3.5-5.1)
[2024-01-21 07:24] LABS: Calcium 7.7 mg/dL (8.5-10.1)
[2024-01-21 07:29] LABS: BUN/Creatinine Ratio 22.8 (10.0-20.0)
[2024-01-21 07:31] LABS: Albumin 2.7 g/dL (3.2-4.8); Phosphorus 4.1 mg/dL (2.4-5.1)
[2024-01-21 07:47] LABS: Magnesium 2.3 mg/dL (1.6-2.6)
[2024-01-21] MEDS: TPN PER PHARMACY IV NR (21:27)
[2024-01-22 05:12] VITALS: BP 137/44; PULSE 62; RESP 17; TEMP 98.1; O2SAT 97
[2024-01-22 08:00] VITALS: PULSE 68; RESP 18; O2SAT 98
[2024-01-22 09:00] VITALS: BP 148/73; PULSE 69; RESP 14; TEMP 98.3; O2SAT 96
[2024-01-22 09:04] LABS: Potassium 4.7 mmol/L (3.5-5.1)
[2024-01-22 09:05] LABS: Calcium 7.6 mg/dL (8.5-10.1)
[2024-01-22 09:10] LABS: BUN/Creatinine Ratio 26.4 (10.0-20.0)
[2024-01-22 09:11] LABS: Albumin 2.8 g/dL (3.2-4.8)
[2024-01-22 09:12] LABS: Phosphorus 3.2 mg/dL (2.4-5.1)
[2024-01-22 09:34] LABS: Magnesium 2.2 mg/dL (1.6-2.6)
[2024-01-22 11:34] LABS: Eosinophils # (auto) 0.3 10 ^3/uL (0-0.8); Lymphocytes # (auto) 0.9 10 ^3/uL (0.4-5.4); Mean Corpuscular Hemoglobin 25.8 pg (28.0-32.0); Mean Corpuscular Hgb Conc. 29.8 g/dL (32.0-36.0); Monocytes # (auto) 0.5 10 ^3/uL (0-1.3); Neutrophils # (auto) 9.3 10 ^3/uL (1.6-8.6)
[2024-01-22 11:35] LABS: Basophils # (auto) 0.1 10 ^3/uL (0-0.2); Basophils % (auto) 0.7 % (0.0-2.0); Eosinophils % (auto) 2.8 % (0.0-7.0); Hematocrit 24.4 % (36.0-46.0); Hemoglobin 7.3 g/dL (12.2-16.2); Lymphocytes % (auto) 7.9 % (10.0-50.0); Mean Corpuscular Volume 86.6 fL (80.0-100.0); Monocytes % (auto) 4.9 % (0.0-12.0); Neutrophils % (auto) 83.7 % (37.0-80.0); Nucleated Red Blood Cells % 0.1 %; Red Blood Cells 2.82 10^6/uL (4.0-5.20); Red Cell Distribution Width 19.5 % (11.8-14.3); White Blood Cell 11.1 10^3/uL (4.4-10.8)
[2024-01-22 13:00] VITALS: PULSE 59; RESP 18; TEMP 98.4; O2SAT 98
[2024-01-22 17:00] VITALS: BP 153/50; PULSE 62; RESP 20; TEMP 97.3; O2SAT 100
[2024-01-22 20:00] VITALS: PULSE 68; RESP 18; O2SAT 98
[2024-01-22] MEDS ORDERED: TPN PER PHARMACY IV NR (20:00)
[2024-01-23 04:59] VITALS: BP 133/48; PULSE 66; RESP 17; TEMP 98.1; O2SAT 97
[2024-01-23 08:10] VITALS: PULSE 67; RESP 18; O2SAT 97
[2024-01-23 09:36] VITALS: BP 164/96; PULSE 67; RESP 18; TEMP 98.4; O2SAT 97
[2024-01-23] MEDS ORDERED: DOCU-94 PO (10:20)
[2024-01-23] MEDS ORDERED: TRAM50TA2 PO (10:20)
[2024-01-23] MEDS ORDERED: FERR-7 PO (10:20)
[2024-01-23] MEDS ORDERED: AMIO200T33 PO (10:20)
[2024-01-23] MEDS ORDERED: METO-158 PO (10:20)
[2024-01-23] MEDS ORDERED: PANT40T PO (10:20)
[2024-01-23] MEDS: LINEZOLID 600MG/300ML 300 ML IV SCH (11:19)
[2024-01-23 13:21] VITALS: BP 153/71; PULSE 63; RESP 18; TEMP 98.6; O2SAT 97
[2024-01-23 13:28] VITALS: BP 153/71; PULSE 63; RESP 18; TEMP 98.6; O2SAT 97
== END 2024-01-23 14:45 | disposition home health service (06) | DRG 853 ==
LOC: ER 23:47 → TELE 01-02 04:32 → TELE-EAST 01-02 23:02 → DOU IN ICU 01-10 21:18 → TELE-WESTW 01-20 09:38 → WEST WING 01-23 07:20
PROVIDERS: ADMIT Nurse Practitioner Family; ATTEND Family Medicine
PROC: 0FT40ZZ Resection of Gallbladder, Open Approach (ICD-10-PCS; 2024-01-10)
PROC: 0DQ90ZZ Repair Duodenum, Open Approach (ICD-10-PCS; 2024-01-10)
PROC: 0DP0XUZ Removal of Feeding Device from Upper Intestinal Tract, External Approach (ICD-10-PCS; principal; 2024-01-10 11:29)
PROC: 0D9670Z Drainage of Stomach with Drainage Device, Via Natural or Artificial Opening (ICD-10-PCS; 2024-01-11)
PROC: 02HV33Z Insertion of Infusion Device into Superior Vena Cava, Percutaneous Approach (ICD-10-PCS; 2024-01-12)
PROC: B548ZZA Ultrasonography of Superior Vena Cava, Guidance (ICD-10-PCS; 2024-01-12)
DX: A41.9 Sepsis, unspecified organism (principal); K85.90 Acute pancreatitis without necrosis or infection, unspecified; N17.9 Acute kidney failure, unspecified; K56.3 Gallstone ileus; N39.0 Urinary tract infection, site not specified; E87.1 Hypo-osmolality and hyponatremia; K31.6 Fistula of stomach and duodenum; K82.3 Fistula of gallbladder; K83.3 Fistula of bile duct; S36.400A Unspecified injury of duodenum, initial encounter; K81.0 Acute cholecystitis; E87.5 Hyperkalemia; E11.22 Type 2 diabetes mellitus with diabetic chronic kidney disease; E78.00 Pure hypercholesterolemia, unspecified; E11.65 Type 2 diabetes mellitus with hyperglycemia; I12.9 Hypertensive chronic kidney disease with stage 1 through stage 4 chronic kidney disease, or unspecified chronic kidney disease; K21.9 Gastro-esophageal reflux disease without esophagitis; N18.9 Chronic kidney disease, unspecified; K57.10 Diverticulosis of small intestine without perforation or abscess without bleeding; K66.0 Peritoneal adhesions (postprocedural) (postinfection); I48.0 Paroxysmal atrial fibrillation; R13.10 Dysphagia, unspecified; B37.9 Candidiasis, unspecified; Z87.891 Personal history of nicotine dependence; Z82.49 Family history of ischemic heart disease and other diseases of the circulatory system; Z83.3 Family history of diabetes mellitus; Z79.4 Long term (current) use of insulin; Z79.899 Other long term (current) drug therapy
CPT/HCPCS: 36415; 36569; 70450; 70490; 71045; 71250; 74018; 74176; 74246; 76705; 76775; 78582; 80048; 80053; 80069; 81001; 82306; 82570; 82962; 83605; 83690; 83735; 83880; 83970; 84100; 84156; 84300; 84439; 84443; 84478; 84484; 85007; 85025; 85027; 85379; 85610; 85730; 86803; 86850; 86900; 86901; 87040; 87070; 87075; 87077; 87081; 87086; 87186; 87205; 87340; 93005; 93970; 94640; 96365; 96375; 97110; 97116; 97163; 97530; C9113; G0378; J0131; J0330; J1100; J1450; J1815; J1885; J2001; J2250; J2405; J2543; J2704; J3490; J7060; J7131

== ENCOUNTER 2024-09-24 09:20 | Inpatient (IN) | payer MEDICARE, MEDICAID ==
[~2024-09-24] VITALS: Ht 157.5 cm; Wt 82.8 kg
[~2024-09-24 09:20] MED LIST: AMIO200T33 PO; ASPI-543 PO; ATEN100T PO; CETI-120 PO; CETI10CA PO; CHOL1TAB30 PO; CLOB0.059 TOP; DOCU-94 PO; FERR-7 PO; INSU1INJ19 SC; LISI40TA16 PO; METO-158 PO; OMEP1CAP70 PO; PANT40T PO; SEMA2INJ3 SC; TRAM50TA2 PO
[2024-09-24] MEDS: PIPERACILLIN-TAZOB 3.375GM 100 ML IV ONE (09:54)
[2024-09-24] MEDS: CLINDAMYCIN 600MG IV 50 ML IV ONE (09:54)
[2024-09-24 10:28] LABS: Basophils # (auto) 0.1 10 ^3/uL (0-0.2); Basophils % (auto) 0.5 % (0.0-2.0); Eosinophils # (auto) 0 10 ^3/uL (0-0.8); Eosinophils % (auto) 0.3 % (0.0-7.0); Hematocrit 36.3 % (36.0-46.0); Hemoglobin 11.9 g/dL (12.2-16.2); Lymphocytes # (auto) 2.4 10 ^3/uL (0.4-5.4); Lymphocytes % (auto) 18.4 % (10.0-50.0); Mean Corpuscular Hemoglobin 29.1 pg (28.0-32.0); Mean Corpuscular Hgb Conc. 32.7 g/dL (32.0-36.0); Mean Corpuscular Volume 88.9 fL (80.0-100.0); Monocytes # (auto) 0.9 10 ^3/uL (0-1.3); Monocytes % (auto) 6.9 % (0.0-12.0); Neutrophils # (auto) 9.8 10 ^3/uL (1.6-8.6); Neutrophils % (auto) 73.9 % (37.0-80.0); Nucleated Red Blood Cells % 0.1 %; Platelet Count (auto) 211 10^3/uL (140-450); Red Blood Cells 4.08 10^6/uL (4.0-5.20); Red Cell Distribution Width 14.8 % (11.8-14.3); White Blood Cell 13.3 10^3/uL (4.4-10.8)
[2024-09-24 10:40] LABS: Chloride 108 mmol/L (98-107); Sodium 141 mmol/L (136-145)
[2024-09-24 10:41] LABS: Anion Gap 7 (5-15); Carbon Dioxide 26 mmol/L (20-31)
[2024-09-24 10:42] LABS: Calcium 9.5 mg/dL (8.7-10.4)
[2024-09-24 10:46] LABS: Glucose 142 mg/dL (74-106)
[2024-09-24 10:47] LABS: Blood Urea Nitrogen 21 mg/dL (9-23)
[2024-09-24] MEDS: HYDROcodone-ACET 5/325MG TAB PO ONE (12:16)
[2024-09-24 13:01] LABS: Urine Bacteria FEW /hpf (None Seen); Urine Blood TRACE /uL (Negative); Urine Clarity Turbid (Clear); Urine Color Light-Yellow (Yellow); Urine Mucus FEW (None Seen); Urine Protein, UAD TRACE (Negative); Urine Specific Gravity 1.015 (1.001-1.035); Urine Urobilinogen Normal (Negative); Urine WBC 199 /hpf (0 - 5); Urine WBC Clumps PRESENT /hpf (None Seen); Urine pH 5.5 (5.0-9.0)
[2024-09-24] MEDS ORDERED: NITROGLYCERIN 0.4 MG SL TAB SL PRN (15:15)
[2024-09-24] MEDS ORDERED: DOCUSATE SOD 100 MG CAP PO PRN (15:15)
[2024-09-24] MEDS ORDERED: ACETAMINOPHEN 325 MG TAB PO PRN (15:15)
[2024-09-24] MEDS ORDERED: DEXTROSE (50%) 50ML SYRG IV PRN (15:15)
[2024-09-24] MEDS ORDERED: MORPHINE SULFATE INJ 2 MG/ml SYRG IV PRN (15:15)
[2024-09-24] MEDS: InsuLIN REG 1unit/0.01ml Soln (100units/ml) SC SCH ×2 (16:48→21:31)
[2024-09-24] MEDS: ACCU-CHEK COMFORT CURVE STRIP VI SCH (16:49)
[2024-09-24] MEDS: PANTOPRAZOLE 40 MG TAB PO SCH (21:11)
[2024-09-24] MEDS: METOPROLOL TARTRATE 50 MG TAB PO SCH (21:16)
[2024-09-24] MEDS: PIPERACILLIN-TAZOB 3.375GM 100 ML IV SCH (21:16)
[2024-09-24] MEDS: HYDROcodone-ACET 5/325MG TAB PO PRN (21:18)
[2024-09-24] MEDS: ENOXAPARIN SOD 80 MG/0.8ML SYRINGE SC SCH (22:18)
[2024-09-25] MEDS: AMIODARONE HCL 200 MG TAB PO SCH (03:07)
[2024-09-25 04:25] LABS: Basophils # (auto) 0.1 10 ^3/uL (0-0.2); Basophils % (auto) 0.6 % (0.0-2.0); Eosinophils # (auto) 0.1 10 ^3/uL (0-0.8); Eosinophils % (auto) 0.8 % (0.0-7.0); Hematocrit 33.4 % (36.0-46.0); Hemoglobin 11.2 g/dL (12.2-16.2); Lymphocytes # (auto) 2.7 10 ^3/uL (0.4-5.4); Lymphocytes % (auto) 24.4 % (10.0-50.0); Mean Corpuscular Hemoglobin 29.5 pg (28.0-32.0); Mean Corpuscular Hgb Conc. 33.4 g/dL (32.0-36.0); Mean Corpuscular Volume 88.4 fL (80.0-100.0); Monocytes # (auto) 0.9 10 ^3/uL (0-1.3); Monocytes % (auto) 8.4 % (0.0-12.0); Neutrophils # (auto) 7.3 10 ^3/uL (1.6-8.6); Neutrophils % (auto) 65.8 % (37.0-80.0); Platelet Count (auto) 207 10^3/uL (140-450); Red Blood Cells 3.78 10^6/uL (4.0-5.20); Red Cell Distribution Width 14.3 % (11.8-14.3)
[2024-09-25 04:27] LABS: Chloride 106 mmol/L (98-107); Potassium 4.6 mmol/L (3.5-5.1); Sodium 140 mmol/L (136-145)
[2024-09-25 04:28] LABS: Anion Gap 8 (5-15); Carbon Dioxide 26 mmol/L (20-31)
[2024-09-25 04:29] LABS: Calcium 8.9 mg/dL (8.7-10.4)
[2024-09-25 04:34] LABS: BUN/Creatinine Ratio 18.8 (10.0-20.0); Blood Urea Nitrogen 21 mg/dL (9-23); Glucose 123 mg/dL (74-106)
[2024-09-25] MEDS: CHOLECALCIFEROL (VITD3) 1,000UNIT=25mCg TAB PO SCH (07:41)
[2024-09-25] MEDS: LISINOPRIL 5 MG TAB PO SCH (07:43)
[2024-09-25] MEDS: ASPirin-EC 81 mg tab PO SCH (07:49)
[2024-09-25] MEDS: FERROUS SULFATE 325mg EC TAB PO SCH (07:49)
[2024-09-25] MEDS: ATENOLOL 25 MG TAB PO SCH (07:50)
[2024-09-25 09:53] VITALS: PULSE 65; RESP 16; O2SAT 95
[2024-09-25] MEDS ORDERED: LISINOPRIL 20 MG TAB PO SCH (10:00)
[2024-09-25 18:29] VITALS: PULSE 72; RESP 18; O2SAT 96
[2024-09-25] MEDS ORDERED: SITA50TA PO (18:57)
[2024-09-25] MEDS ORDERED: FURO40TA4 PO (18:57)
[2024-09-25] MEDS ORDERED: LEVA1AER PO (18:57)
[2024-09-25] MEDS ORDERED: NIFE1TAB30 (18:57)
[2024-09-25] MEDS ORDERED: RIOC1TAB13 (18:57)
[2024-09-25 20:00] VITALS: PULSE 72; RESP 18; O2SAT 96
[2024-09-25] MEDS: ACETAMINOPHEN 325 MG TAB PO PRN (20:33)
[2024-09-25 21:00] VITALS: BP 118/44; PULSE 72; RESP 18; TEMP 98.2; O2SAT 96
[2024-09-26] VITALS (8 sets, daily range): BP systolic 120–153; BP diastolic 49–62; PULSE 62–73; RESP 16–20; TEMP 97.4–98.6; O2SAT 94–98
[2024-09-26] MEDS ORDERED: AMOX500T86 PO (11:38)
[2024-09-26] MEDS ORDERED: HYDR-4798 PO (12:20)
[2024-09-26] MEDS: FUROSEMIDE 40 MG/4 ML VIAL IV ONE (13:28)
[2024-09-26] MEDS: AZITHROMYCIN 500MG/ 250ML 250 ML IV SCH (17:46)
[2024-09-27 01:00] VITALS: BP 148/66; PULSE 68; RESP 17; TEMP 98.4; O2SAT 95
[2024-09-27 05:00] VITALS: BP 139/56; PULSE 65; RESP 17; TEMP 98.2; O2SAT 91
[2024-09-27 08:00] VITALS: RESP 16
[2024-09-27 08:29] VITALS: BP_SYST 117; BP_SYST 146; BP_DIAS 62; BP_DIAS 64; PULSE 64; PULSE 92; RESP 16; RESP 18; TEMP 98; TEMP 98.2; O2SAT 96; O2SAT 99
[2024-09-27] MEDS ORDERED: AZIT-43 PO (11:34)
[2024-09-27 12:34] VITALS: BP 153/68; PULSE 66; RESP 18; TEMP 98.1; O2SAT 95
[2024-09-27 14:18] VITALS: BP 153/74; PULSE 66; TEMP 36.7
== END 2024-09-27 15:30 | disposition home or self-care (01) | DRG 603 ==
LOC: ER 09:20 → OVERFLOW 15:08 → WEST WING 09-25 17:42
PROVIDERS: ADMIT Nurse Practitioner Family; ATTEND Nurse Practitioner Family
DX: L03.113 Cellulitis of right upper limb (principal); N30.01 Acute cystitis with hematuria; I48.0 Paroxysmal atrial fibrillation; E11.65 Type 2 diabetes mellitus with hyperglycemia; E66.9 Obesity, unspecified; I10 Essential (primary) hypertension; Z79.4 Long term (current) use of insulin; Z79.82 Long term (current) use of aspirin; Z79.899 Other long term (current) drug therapy; Z87.891 Personal history of nicotine dependence; Z68.33 Body mass index [BMI] 33.0-33.9, adult; Z83.3 Family history of diabetes mellitus; Z82.49 Family history of ischemic heart disease and other diseases of the circulatory system; W55.01XA Bitten by cat, initial encounter; Y93.89 Activity, other specified; Y92.89 Other specified places as the place of occurrence of the external cause; Y99.8 Other external cause status
CPT/HCPCS: 36415; 73200; 80048; 81001; 82962; 83036; 85025; 87040; 87086; 99291; G0378; J1815; J2543; J3490